=== PATIENT | female | born 1960 | race Caucasian/White ===

== ENCOUNTER 2021-11-26 07:55 | Emergency (ER) | payer BC, SELFPAY ==
[2021-11-26] VITALS (14 sets, daily range): BP systolic 158–180; BP diastolic 87–102; PULSE 68–79; RESP 12–21; TEMP 36.5; O2SAT 94–99
--- NOTE | 2021-11-26 08:15 | DI.CT_ITS ---
Exam(s) CT PELVIC WO CT THORACIC LUMBAR SPINE WO EXAM: CT THORACIC LUMBAR SPINE WO CLINICAL HISTORY: fall down 5 steps TECHNIQUE: COMPARISON: CT CT PELVIC WO from 11/26/2021 FINDINGS: CT examination of thoracic and lumbar spine and CT examination of the pelvis and hips are interpreted in conjunction. Visualized portions of the lungs are unremarkable. There is an apparent right lobe hepatic mass whic h has fluid attenuation consistent with a cyst. There is ectasia of the thoracic ascending aorta at 41 millimeters. Kidneys appear intact by noncontrast criteria. No retroperitoneal adenopathy or fluid collection. N o pelvic fluid collection. There is a fracture of the L1 vertebral body with components extending vertically from anterior to po sterior through the vertebral body and with retropulsion of an 11 x 11 x 13 millimeter in diameter po sterior superior endplate cortical fragment into the spinal canal by about 8 millimeters, this reduce s the available spinal canal area by approximately 50 percent. This has the characteristics of a burst fracture and is potentially unstable. No additional L1 fracture seen. No additional fracture identified in the thoracic or lumbar spine. No pelvic or hip fracture identified. IMPRESSION: L1 burst fracture with retropulsed fragment of posterior superior vertebral cortex by 8 millimeters a s described above. Findings were conveyed to Estelita Mejia in the emergency department. RADIATION DOSE DELIVERED: 1,660.52mGy.cm Total DLP !Error CTDIvol RADIATION OPTIMIZATION: All CT scans at this facility use at least one of these dose optimization te chniques: automated exposure control; mA and/or kV adjustment per patient size (includes targeted exa ms where dose is matched to clinical indication); or iterative reconstruction.
[2021-11-26] MEDS: oxyCODONE 5 mg/Acetaminophen 325 mg TAB 1 TAB PO (08:25)
[2021-11-26] MEDS: Acetaminophen 325 MG TAB 650 MG PO (08:25)
[2021-11-26] MEDS: Cyclobenzaprine 10 MG TAB PO (08:25)
--- NOTE | 2021-11-26 08:26 | W.ED.GENAD ---
Discharge Plan Disposition Patient Disposition: [facility] Condition: Serious Discharge Details Clinical Impression: Burst fracture of lumbar vertebra, Fall Primary Care Provider: None,None ED Provider: Estelita Mejia Home Meds and New Rx's Prescriptions: Continued naltrexone 50 mg Tablet 25 mg PO DAILY 0RF bupropion HCl 100 mg Tablet 100 mg PO DAILY 0RF duloxetine [Cymbalta] 60 mg Capsule,Delayed Release(Dr/Ec) 60 mg PO DAILY 0RF Discharge Data Discharge Date/Time-TO BE ENTERED AT DEPARTURE: 11/26/21 12:12 Medical Decision Making Given patient level of pain from CT scan of her thoracic and lumbar spine are ordered in addition to her pelvis Nonfocal neurological exam CT results discussed with Dr. Dey radiology regarding L1 burst fracture with retropulsion, No abdominal tenderness, GCS 15, alert and oriented x4 Transfer line called at [phone] pending trauma surgery consultation [facility] return phone call at [phone], spoke with Dr. Corea, trauma surgery, they are excepting patient as a trauma letter to the emergency department Requested chest x-ray without evidence of acute abnormality per my review pending radiologist patient In place and patient is resting comfortably, pain controlled Reexamination and neurologically intact Stable for discharge to [facility] Maintained in supine position HPI General Date/Time Provider Initiated Documentation: 11/26/21 08:02. HPI Narrative: This 61-year-old female presents with report of fall down 5 stairs. She denies loss of consciousness or head injury. She states she was unable to ambulate secondary to pain. Denies any sensation change to her extremities or weakness. Denies abdominal pain, chest pain, shortness of breath. States that this occurred last evening around 7. She states she was unable to get up secondary to discomfort. She does live with her , however she did not want him to your sister secondary to pain. She denies any history of coagulopathy. Denies nonaccidental trauma states always mechanical in nature Related Data Home Medications Medication Instructions Recorded Confirmed bupropion HCl 100 mg tablet 100 mg PO DAILY 11/26/21 11/26/21 duloxetine 60 mg capsule,delayed 60 mg PO DAILY 11/26/21 11/26/21 release (Cymbalta) naltrexone 50 mg tablet 25 mg PO DAILY 11/26/21 11/26/21 Allergies Allergy/AdvReac Type Severity Reaction Status Date / Time No Known Allergies Allergy Unverified 11/26/21 08:03 General Stated Complaint: Trauma WILFREDO: 2 Review of Systems All systems reviewed & are unremarkable except as noted in HPI and below PFSH All Active Problems (Updated 11/26/21 @ 11:54 by ANDERSON Chow) Burst fracture of lumbar vertebra (Acute) Fall (Acute) Medical History (Updated 11/26/21 @ 11:54 by ANDERSON Chow) Depression Social History Smoking/Tobacco Use Status: Never Smoking risk assessment performed?: Yes Substance use type: does not use Exam Const General: cooperative and acute distress HENMT Other: Uvula midline, no visible evidence of trauma, no hemotympanum Eyes Pupils: PERRL Neck Other: No midline tenderness or visible evidence of trauma, no paraspinal tenderness, no crepitus Chest Chest: normal inspection of the chest Other: Lungs clear to auscultation, no chest tenderness Resp Effort & Inspection: normal respiratory effort Auscultation: clear to auscultation bilaterally Cardio Rate: regular rate Rhythm: regular rhythm GI Inspection: normal to inspection Other: No abdominal tenderness, no visible sign of trauma, no CVA tenderness Back/Spine/Pelvis Back: no CVA tenderness and CVA tenderness Other: Paraspinal tenderness without midline tenderness, no visible evidence of trauma Neuro General: patient alert, patient oriented x3 and no focal motor deficits Cognition: normal cognition Speech: speech normal Other: Strength and sensation intact distally to all 4 extremities Extrem General: normal to inspection Other: Distal pulses intact, ecchymosis to right upper thigh x2, ecchymosis left upper thigh x1, approximately 1 inch Inch ecchymosis to right upper arm along the dorsal aspect, approximately 6 inches x 3 inches, nontender Course Vital Signs Vital signs: Vital Signs Temperature 36.5 C 11/26/21 07:58 Pulse 70 11/26/21 07:58 Respiratory Rate 16 11/26/21 07:58 Blood Pressure 164/94 H 11/26/21 07:58 Pulse Oximetry 99 11/26/21 07:58 Temperature 36.5 C 11/26/21 07:58 Temperature Source Skin 11/26/21 07:58 Pulse 70 11/26/21 07:58 Respiratory Rate 16 11/26/21 07:58 Respiratory Effort 11/26/21 07:58 Blood Pressure 164/94 H 11/26/21 07:58 Blood Pressure Position Supine 11/26/21 07:58 Pulse Oximetry 99 11/26/21 07:58 Oxygen Delivery Method Room Air 11/26/21 07:58 Oxygen Flow Rate 0 11/26/21 07:58 Pain Level 10 11/26/21 07:58 PAWSS Have you Been Recently Intoxicated or Drunk Within the Last 30 days?: Yes Have you Ever Experienced Previous Episodes of Alcohol Withdrawal?: No Have you ever Experienced Withdrawal Seizures?: No Have you ever Experienced Delirium Tremens(DT)s?: No Have you ever undergone Alcohol Rehabilitation Treatment (i.e, inpt ot outpatient treatment programs)?: No Have you ever Experienced Blackouts?: Yes Have you ever Combined Alcohol with other Downers within the last 90 days?: No Have you ever Combined Alcohol with any other Substance of Abuse during the last 90 days?: No Positive Blood Alcohol level on Presentation? [PCS.BAL]: No Evidence of Increased Autonomic Activity (i.e. HR>120, tremor, sweating, agitation, nausea)?: No Result: 2
[2021-11-26] MEDS: MORPHine 4 MG/ML SYR IVP (10:19)
[2021-11-26] MEDS: Normal Saline 1,000 ML 150 ML IV (10:26)
[2021-11-26 10:29] LABS: Source Nasal/Nares
[2021-11-26 10:30] LABS: Abs Immature Grans 0.05 10^3/uL (0.0-0.06); Absolute Basophil Count 0.03 10^3/uL (0.0-0.2); Absolute Eosinophil Count 0.04 10^3/uL (0.0-0.7); Absolute Lymphocyte Count 0.93 10^3/uL (1.2-3.4); Absolute Monocyte Count 0.51 10^3/uL (0.1-0.8); Absolute Neutrophil Count 7.25 10^3/uL (1.2-6.7); Basophils % 0.3; Eosinophils % 0.5; HCT 42.6 % (36.0-46.0); HGB 13.7 g/dL (11.2-15.7); Immature Grans % 0.6; Lymphocytes % 10.6; MCH 29.1 pg (27.0-33.0); MCHC 32.2 % (32.0-36.0); MCV 90.6 fL (80-95); MPV 11.7 fL (8.0-11.0); Monocytes % 5.8; Neutrophils % 82.2; Nucleated RBC 0 %; Platelet Count 168 10^3/uL (130-400); RDW 13.3 % (11.7-14.6); RDW-SD 44.9 fL; WBC 8.81 10^3/uL (4.4-10.8)
[2021-11-26 10:58] LABS: ALT 26 U/L (14-59); AST 25 U/L (15-37); Albumin 4.2 g/dL (3.4-5.0); Alkaline Phosphatase 65 U/L (46-116); Anion Gap 12.8 mmol/L (3-11); BUN 9 mg/dL (7-18); Bilirubin, Total 0.6 mg/dL (0.2-1.0); CO2 25.2 mmol/L (21.0-32.0); CREATININE 0.9 mg/dL (0.55-1.02); Calcium 8.8 mg/dL (8.5-10.1); Chloride 104 mmol/L (98-107); Glucose 85 mg/dL (74-106); Potassium 3.7 mmol/L (3.5-5.1); Sodium 142 mmol/L (136-145); Total Protein 7.6 g/dL (6.4-8.2)
[2021-11-26 11:00] LABS: Bilirubin Negative (Negative); Blood Negative (Negative); Clarity Clear (Clear); Glucose Negative (Negative); Ketones 80 mg/dL (Negative); Leukocyte Esterase Negative (Negative); Nitrite Negative (Negative); Specific Gravity >= 1.030 (1.005-1.025); Urobilinogen 0.2 EU/dL (Up TO 0.2)
[2021-11-26 11:07] LABS: COVID-19 PCR Negative (Negative)
--- NOTE | 2021-11-26 11:21 | DI.RAD_ITS ---
Exam(s) XR PORTABLE CHEST AP EXAM: XR PORTABLE CHEST AP CLINICAL HISTORY: fall down 5 stairs. TECHNIQUE: 2D digital imaging was performed. COMPARISON: No exams were available for comparison FINDINGS: LUNGS: Clear. No pleural abnormality seen. HEART: Normal. MEDIASTINUM: Normal. OTHER FINDINGS: None. IMPRESSION: No acute pulmonary findings. DATA REPOSITORY: RADIATION DOSE DELIVERED: Total DLP
[2021-11-26] MEDS: MORPHine 10 MG/ML VIAL 2 MG IVP (11:31)
== END 2021-11-26 12:12 | disposition short-term general hospital (02) ==
PROVIDERS: Emergency Provider Physician Assistant
DX: S32.011A Stable burst fracture of first lumbar vertebra, initial encounter for closed fracture (principal); W10.8XXA Fall (on) (from) other stairs and steps, initial encounter
CPT/HCPCS: 36415; 51702; 80053; 86850; 86900; 86901; 87635; 96361; 96374; 96376; 99285; 71045; 72128; 72131; 72192; 81003; 85025; J2270